=== PATIENT | female | born 1960 | race African-American/Black ===

== ENCOUNTER 2016-11-16 06:06 | Day surgery (SDC) | payer MEDICARE, OTHER ==
[~2016-11-16 06:06] MED LIST: ASAB PO; AT25 PO; BL CHROMIUM200 MCG OR; CAT2 PO; CELEXA40 MG PO; CENTRUM PO; COZ50 PO; CRESTOR20 MG PO; EFFEXOR XR150 MG PO; FERROUS SULF325 M1 PO; FLEX PO; GLUCOPHAGE1000 MG PO; GLUCOTRO10 PO; HCTZ25B PO; KLONO5 PO; LANTUS SC; LEVEMIR SC; LEVOTHYROXIN100 MCG PO; LEVOTHYROXIN88 MCG PO; LIPITOR20 PO; LYRICA75 PO; MICROZIDE PO; MSCONT15 PO; MULTIPLE VIT PO; NEUR300 PO; NORCO1 TA1 PO; NORCO1 TAB PO; NORV10 PO; P125 PO; TRAVATAN OPH; V2 PO; VICTOZA18 MG/3 ML SC; VITAMIN B-121000 MC1 SL; VITAMIN B-122500 MCG SL; VITAMIN D31000 UNIT PO; WELLSR150 PO; ZANTAC 150 PO; ZESTORETIC1 TA1 PO
== END 2016-11-16 09:35 | disposition home or self-care (01) ==
LOC: SDC 06:06
PROVIDERS: Orthopaedic Surgery
PROC: 3E0S3BZ Introduction of Anesthetic Agent into Epidural Space, Percutaneous Approach (ICD-10-PCS; 2016-11-16)
PROC: 3E0S33Z Introduction of Anti-inflammatory into Epidural Space, Percutaneous Approach (ICD-10-PCS; 2016-11-16)
PROC: 3E0S3BZ Introduction of Anesthetic Agent into Epidural Space, Percutaneous Approach (ICD-10-PCS; 2016-11-16)
PROC: 3E0S33Z Introduction of Anti-inflammatory into Epidural Space, Percutaneous Approach (ICD-10-PCS; principal; 2016-11-16 07:15)
DX: M54.16 Radiculopathy, lumbar region (principal); M54.14 Radiculopathy, thoracic region; E78.00 Pure hypercholesterolemia, unspecified; M19.90 Unspecified osteoarthritis, unspecified site; K21.9 Gastro-esophageal reflux disease without esophagitis; E03.9 Hypothyroidism, unspecified; E11.9 Type 2 diabetes mellitus without complications; F41.0 Panic disorder [episodic paroxysmal anxiety]; F32.9 Major depressive disorder, single episode, unspecified; D64.9 Anemia, unspecified; Z79.82 Long term (current) use of aspirin; Z79.891 Long term (current) use of opiate analgesic; Z79.899 Other long term (current) drug therapy; Z98.1 Arthrodesis status; Z90.710 Acquired absence of both cervix and uterus; Z98.890 Other specified postprocedural states
CPT/HCPCS: 82962; J1040; J2250; J3010; Q9967